=== PATIENT | female | born 1975 | race Caucasian/White ===

== ENCOUNTER 2021-07-23 08:34 | Outpatient (REF) | payer OTHER, SELFPAY ==
[2021-07-24 04:51] LABS: CT PCR NOT DETECTED (Not Detect.); NG PCR NOT DETECTED (Not Detect.)
[2021-07-24 09:42] LABS: BV Int Neg Control Negative (Negative); BV Int Pos Control Positive (Positive)
[2021-07-29 18:46] LABS: HPV mRNA E6/E7 rflx Not Detected (Not Detected)
== END 2021-07-23 08:35 | disposition home or self-care (01) ==
LOC: HO.LAB 08:34
PROVIDERS: PCP Internal Medicine; Visit Provider Advanced Practice Midwife
DX: Z01.419 Encounter for gynecological examination (general) (routine) without abnormal findings (principal); Z11.51 Encounter for screening for human papillomavirus (HPV); Z20.2 Contact with and (suspected) exposure to infections with a predominantly sexual mode of transmission; Z98.890 Other specified postprocedural states; N64.4 Mastodynia; Z87.42 Personal history of other diseases of the female genital tract; Z90.710 Acquired absence of both cervix and uterus
CPT/HCPCS: 87480; 87491; 87510; 87591; 87624; 87660; 88142

== ENCOUNTER 2021-09-16 12:43 | Outpatient (REF) | payer OTHER, SELFPAY ==
--- NOTE | ~2021-09-16 | MM_ITS ---
EXAMINATION: MM DIAGNOSTIC DIGITAL BREAST TOMOSYNTHESIS, BILATERAL CLINICAL INFORMATION: 46-year-old with recent history sharp right breast pain medial aspect, currently asymptomatic. No discharge or palpable mass. Prior history bilateral reduction mammoplasty 2003. Outside mammography from [facility] currently unavailable. The lifetime risk of breast cancer based on the Tyrer-Cuzick Model is 7%. COMPARISON: None. TECHNIQUE: Digital breast tomosynthesis is performed in both the craniocaudal and mediolateral oblique views along with computer-aided detection (CAD). Synthesized 2D images are generated from the tomosynthesis. FINDINGS: The breasts are almost entirely fatty (ACR BI-RADS breast composition Category a). Background stromal and fibroglandular densities are unremarkable. There is no significant mass or architectural abnormality. There is a tiny circumscribed nodule central 9:00 right breast just under 4 mm. No skin thickening or coarsening of the Deni's ligaments. No abnormal calcifications. The axilla are unremarkable. Radiology department staff will attempt to retrieve prior outside mammography to allow for comparison in an addendum report. Results are discussed with the patient at time of visit. MM/MM tomosynthesis diagnostic BI IMPRESSION: No mammographic evidence of malignancy or inflammatory changes. ASSESSMENT: BI-RADS 2: Benign RECOMMENDATION: 1. Routine annual mammography screening. 2. Radiology department staff will attempt to retrieve prior outside mammography to allow for comparison in an addendum report. This patient's information was entered into a reminder system with a target due date for their next mammogram.
== END 2021-09-16 12:44 | disposition home or self-care (01) ==
LOC: HO.MAMMO 12:43
PROVIDERS: Visit Provider Advanced Practice Midwife
DX: N64.4 Mastodynia (principal)
CPT/HCPCS: 77062; 77066

== ENCOUNTER 2021-09-30 08:55 | Outpatient (REF) | payer OTHER, SELFPAY ==
--- NOTE | ~2021-09-30 | US_ITS ---
EXAMINATION: US DIAGNOSTIC ULTRASOUND BREAST, RIGHT CLINICAL INFORMATION: Recall from recent mammography for tiny circumscribed nodule central 9:00 position, possibly a cyst. Finding new from outside mammography 2018. COMPARISON: Mammography 09/16/2021, outside mammography 07/20/2018 ([facility]). TECHNIQUE: Ultrasound right breast is targeted to the 7:00 through 11:00 position. Grayscale imaging and color Doppler are performed without and with harmonics. FINDINGS: There is a tiny simple cyst 8:00 position 8 cm from nipple corresponding to the nodule on mammography and measuring 0.4 x 0.3 cm. There are smooth margins, mild increased through-transmission of sound, no solid component, no associated color flow. No additional findings. Results are discussed with the patient at time of visit. US/US breast RT limited IMPRESSION: Incidental cyst under 5 mm mid 8:00 right breast corresponding to the benign-appearing nodule on recent mammography. ASSESSMENT: BI-RADS 2: Benign RECOMMENDATION: Routine annual mammography screening. This patient's information was entered into a reminder system with a target due date for their next mammogram.
== END 2021-09-30 08:56 | disposition home or self-care (01) ==
LOC: HO.MAMMO 08:55
PROVIDERS: Visit Provider Advanced Practice Midwife
DX: N63.15 Unspecified lump in the right breast, overlapping quadrants (principal); N64.4 Mastodynia; Z98.890 Other specified postprocedural states
CPT/HCPCS: 76642

== ENCOUNTER → 2022-06-02 14:17 | Outpatient (BNVA) | payer SELFPAY | PROVIDERS: PCP Internal Medicine; Visit Provider Internal Medicine | DX: Z02.79 Encounter for issue of other medical certificate (principal) ==

== ENCOUNTER 2022-11-10 07:50 | Outpatient (REF) | payer OTHER, SELFPAY ==
--- NOTE | ~2022-11-10 | MM_ITS ---
EXAMINATION: MM DIAGNOSTIC DIGITAL BREAST TOMOSYNTHESIS, BILATERAL US BILATERAL TARGETED BREAST ULTRASOUND CLINICAL INFORMATION: Status post bilateral breast reduction surgery with right axillary pain and palpable abnormality lower inner quadrant. The lifetime risk of breast cancer based on the Tyrer-Cuzick Model is 10%. COMPARISON: Mammography: 09/30/2021 and studies dating back to 04/05/2014. TECHNIQUE: Digital breast tomosynthesis is performed in both the craniocaudal and mediolateral oblique views along with computer-aided detection (CAD). Synthesized 2D images are generated from the tomosynthesis. Bilateral targeted breast ultrasound. FINDINGS: There are scattered areas of fibroglandular density (ACR BI-RADS breast composition Category b). There is a stable parenchymal pattern of both breasts with changes related to previous bilateral reduction surgery. A few stable circumscribed densities are present. No new suspicious dominant mass or suspicious grouping of microcalcifications identified. Targeted right breast ultrasound in the upper outer quadrant did not demonstrate abnormal cystic or solid mass. No region of abnormal distal-sound shadowing was identified. No edematous change within the parenchyma is seen. Targeted left breast ultrasound in region of palpable abnormality demonstrated a slightly hyperechoic homogeneous echotexture well-circumscribed structure which is wider than it is tall without internal vascularity and with mild distal-sound enhancement. No distal sound shadowing is appreciated. Results are discussed with the patient at time of visit. MM/MM tomosynthesis diagnostic BI IMPRESSION: No significant mammographic change. No mammographic or ultrasound abnormality about the upper outer aspect of the right breast. Left breast circumscribed benign-appearing lesion as described in the lower inner quadrant for which 6 month followup left breast ultrasound is recommended. ASSESSMENT: BI-RADS 3: Probably benign. RECOMMENDATION: Diagnostic mammography in 6 months. This patient's information was entered into a reminder system with a target due date for their next mammogram.
== END 2022-11-10 07:51 | disposition home or self-care (01) ==
LOC: HO.MAMMO 07:50
PROVIDERS: PCP Internal Medicine; Visit Provider Internal Medicine
DX: N64.89 Other specified disorders of breast (principal); M79.621 Pain in right upper arm; Z98.890 Other specified postprocedural states
CPT/HCPCS: 76642; 77062; 77066

== ENCOUNTER → 2023-05-28 09:31 | Outpatient (BNVA) | payer SELFPAY | PROVIDERS: PCP Internal Medicine; Visit Provider Internal Medicine | DX: Z02.79 Encounter for issue of other medical certificate (principal) ==

== ENCOUNTER 2023-06-01 10:59 | Outpatient (REF) | payer SELFPAY ==
--- NOTE | ~2023-06-01 | US_ITS ---
EXAMINATION: US DIAGNOSTIC ULTRASOUND BREAST, LEFT CLINICAL INFORMATION: 6 month follow-up left breast lipoma lower inner quadrant. Patient complaining of new palpable lump left breast lower outer quadrant.. COMPARISON: 11/10/2022 ultrasound left breast. Mammography dated 11/10/2022. TECHNIQUE: Ultrasound of the breast is performed with real-time meeks scale imaging and color Doppler. FINDINGS: Within the 4-5 o'clock axis of the left breast, 8 cm from the nipple, there is a subcutaneous lipoma measuring 2.8 x 3.2 x 0.5 cm, correlating well with the new focus of palpable concern. No soft tissue component. No internal color Doppler flow. This is benign. The previously seen and imaged lipoma in the left breast at the 8:00 axis, 12 cm from the nipple, is completely and entirely unchanged, and measures 2.8 x 2.9 x 1.4 cm. No soft tissue component. No internal color Doppler flow. No cystic abnormality. US/US breast LT limited mamm only IMPRESSION: 2 benign lipomas left breast as detailed, correlating with the foci of palpable concern. These are benign. No further imaging follow-up recommended. Recommend the patient return to routine annual screening in October 2023. ASSESSMENT: BI-RADS 2: Benign RECOMMENDATION: Routine annual mammography screening. This patient's information was entered into a reminder system with a target due date for their next mammogram.
== END 2023-06-01 11:00 | disposition home or self-care (01) ==
LOC: HO.MAMMO 10:59
PROVIDERS: PCP Internal Medicine; Visit Provider Internal Medicine
DX: N63.24 Unspecified lump in the left breast, lower inner quadrant (principal)
CPT/HCPCS: 76642

== ENCOUNTER → 2023-06-01 11:30 | Outpatient (BNV) | payer SELFPAY | PROVIDERS: PCP Internal Medicine; Visit Provider Radiology Diagnostic Radiology | DX: D24.2 Benign neoplasm of left breast (principal) | CPT/HCPCS: 76642 ==

== ENCOUNTER 2024-01-15 08:21 | Outpatient (REF) | payer OTHER, SELFPAY | END 2024-01-15 08:22 | disposition home or self-care (01) | LOC: HO.MAMMO 08:21 | PROVIDERS: PCP Internal Medicine; Visit Provider Internal Medicine | DX: Z13.89 Encounter for screening for other disorder (principal) ==

== ENCOUNTER 2024-02-18 07:33 | Outpatient (REF) | payer OTHER, SELFPAY ==
--- NOTE | ~2024-02-18 | MM_ITS ---
EXAMINATION: MM SCREENING DIGITAL BREAST TOMOSYNTHESIS, BILATERAL CLINICAL INFORMATION: Screening. Asymptomatic. Patient is status post bilateral breast reduction. COMPARISON: Mammography: This study is compared with prior exams dating back to 2018. TECHNIQUE: Digital breast tomosynthesis is performed in both the craniocaudal and mediolateral oblique views along with computer-aided detection (CAD). Synthesized 2D images are generated from the tomosynthesis. FINDINGS: There are scattered areas of fibroglandular density (ACR BI-RADS breast composition Category b). There are no significant masses, abnormal calcifications, or other abnormalities. Post reduction changes are present. MM/MM tomosynthesis screening BI IMPRESSION: No mammographic evidence of malignancy. ASSESSMENT: BI-RADS BI-RADS 2 - Benign Findings RECOMMENDATION: Routine annual mammography screening. 1 year F/U This examination should not preclude the clinical evaluation of a suspicious palpable abnormality. This patient's information was entered into a reminder system with a target due date for their next mammogram.
== END 2024-02-18 07:34 | disposition home or self-care (01) ==
LOC: HO.MAMMO 07:33
PROVIDERS: PCP Internal Medicine; Visit Provider Internal Medicine
DX: Z12.31 Encounter for screening mammogram for malignant neoplasm of breast (principal)
CPT/HCPCS: 77063; 77067

== ENCOUNTER → 2024-02-18 07:45 | Outpatient (BNV) | payer OTHER, SELFPAY | PROVIDERS: PCP Internal Medicine; Visit Provider Radiology Diagnostic Radiology | DX: Z12.31 Encounter for screening mammogram for malignant neoplasm of breast (principal) | CPT/HCPCS: 77063; 77067 ==